=== PATIENT | female | born 1965 | race Caucasian/White ===

== ENCOUNTER 2021-09-28 10:06 | Emergency (ER) | payer MEDICAID ==
[~2021-09-28] VITALS: Ht 157.5 cm; Wt 90.7 kg
--- NOTE | 2021-09-28 10:10 | NUR ---
BIB RA [id number], CHRONIC BILATERAL KNEE PAIN(3 YRS),WORSE TODAY,"COULDN'T GET UP. THE PATIENT RATES PAIN 10/10. NO APPARENT DEFORMITY NOTED. WILL CONTINUE TO MONITOR THE PATIENT.
--- NOTE | 2021-09-28 10:15 | NUR ---
DR MARTINEZ AT THE BEDSIDE
[2021-09-28] MEDS ORDERED: HYDR-3980 PO (10:20)
[2021-09-28] MEDS ORDERED: KETOROLAC TROMETHAMINE INJ 60 MG/2 ML VIAL IM ONE (10:30)
[2021-09-28] MEDS ORDERED: KETOROLAC TROMETHAMINE INJ 30 MG/ML VIAL ONE (10:39)
[2021-09-28 11:24] VITALS: BP 134/84
--- NOTE | 2021-09-28 11:24 | NUR ---
Patient discharged to home in stable condition. Written and verbal after care instructions given. Patient verbalizes understanding of instruction.
== END 2021-09-28 11:25 | disposition home or self-care (01) ==
LOC: ER 11:03
DX: M17.0 Bilateral primary osteoarthritis of knee (principal); I10 Essential (primary) hypertension
CPT/HCPCS: 96372; 99283; J1885